=== PATIENT | male | born 1945 | race Caucasian/White ===

== ENCOUNTER → 2020-01-06 | Outpatient (CLI) | payer OTHER ==
--- NOTE | 2020-01-06 17:31 | XCELERA REPORT ---
[address] [place] [facility] [address] Lower Extremity Venous Evaluation Procedure: Color flow and duplex imaging of the veins of the left lower extremity as well as the left Common Femoral vein. Right Sided Venous Evaluation The right common femoral vein is fully compressible. Spontaneous and phasic flow is present in the right common femoral vein. Left Sided Venous Evaluation Normal vessel filling wall to wall, compression and augmentation as well as Colour flow down to the infrageniculate veins. Interpretation Summary No duplex evidence of DVT or obstruction in the left lower extremity nor in the right Common Femoral vein. Name: KERRI VILLALBA Age: 74 yrs Gender: Male : 1945 Patient Status: Outpatient Patient Location: Study Date: 01/06/2020 04:44 PM Reason For Study: LLE PAIN Ordering Physician: ASHUTOSH FULTON Performed By: Lisa Lambert : ASHUTOSH FULTON > Stu Moraes
== END ==
LOC: SP 16:09
PROVIDERS: ATTEND Physician Assistant
DX: M79.662 Pain in left lower leg (principal)
CPT/HCPCS: 93971